=== PATIENT | female | born 1995 | race Hispanic/Latino ===

== ENCOUNTER 2024-07-05 10:57 | Outpatient (CLI) | payer SELFPAY ==
--- NOTE | ~2024-07-05 | US_ITS ---
EXAMINATION: US OB /maternal detail DATE: 07/05/2024 21:57 CDT INDICATION: Anatomy scan TECHNIQUE: Real-time transabdominal obstetric ultrasound. FINDINGS: 3 para 2 There is a single intrauterine gestation in variable presentation. The placenta is posterior without placenta previa The cervix measures 3 cm in length. cardiac activity and movement is noted with a heart rate of 135 beats per minute. Anatomic parameters are as follows The bladder is visualized and is unremarkable. A three-vessel cord is present. Cord insertion is not clearly demonstrated to be on the midline on the submitted images for which f ollow-up is needed. Bilateral kidneys are present without hydronephrosis. The anterior and posterior margins of the diaphragm are continuous. The cervical, thoracic and lumbar spines are covered in their entirety. choroid plexi are visualized, and unremarkable. Lateral ventricles are visualized. The falx is visualized. The cerebellum is visualized measuring 28.5 mm, and is sonographically unremarkable. The cisterna magna measures 2.5 mm in anterior to posterior dimension (normal measurement is 2 to 10 mm). The nuchal fold was not visualized. Cine of the four-chamber heart is visualized although without significant detail. Neither the right or left ventricular outflow tracts were identified. Limited views of the arms, hands, legs and feet were performed and appear grossly unremarkable. Evaluation of the upper lip and nose confirms their continuity. The following biometric data were obtained: Biparietal diameter (BPD): 6.4 cm; head circumference (HC): 24.5 cm; abdominal circumference (AC): 22.7 cm; femur length (FL): 4.8 cm. These measurements are concordant. Estimated weight is 967 g +/- 145 g, which correlates with the 17th percentile when 10/08/2024 i s used as estimated date of delivery. As single measurements, these parameters are each equal to the following estimated gestational ages: BPD: 26 weeks 0 days. HC: 26 weeks 4 days. AC: 27 weeks 1 day. FL: 26 weeks 1 day. estimated gestational age based solely on measurements from this exam is 26 weeks 3 days +/- 1 week 6 days. IMPRESSION: Single intrauterine gestation with an approximate gestational age of 26 weeks and 3 days. Estimated d ue date by ultrasound is 10/08/2024. The nuchal fold was not visualized. Cine of the four-chamber heart is visualized although without significant detail. Neither the right or left ventricular outflow tracts were identified. Cord insertion is not clearly demonstrated to be on the midline on the submitted images for which f ollow-up is needed. Remainder of the anatomy scan is otherwise unremarkable and within normal limits Reviewed, dictated and finalized at location A. IMPRESSION: Single intrauterine gestation with an approximate gestational age of 26 weeks a nd 3 days. Estimated due date by ultrasound is 10/08/2024. The nuchal fold was not visualized. Cine of the four-chamber heart is visualized although without significant det ail. Neither the right or left ventricular outflow tracts were identified. Cord insertion is not clearly demonstrated to be on the midline on the submit evette images for which follow-up is needed. Remainder of the anatomy scan is otherwise unremarkable and within normal limit s
== END 2024-07-05 10:58 | disposition home or self-care (01) ==
LOC: ANHIMG 11:24
PROVIDERS: Visit Provider Physician Assistant Medical
DX: Z34.90 Encounter for supervision of normal pregnancy, unspecified, unspecified trimester (principal)
CPT/HCPCS: 76805

== ENCOUNTER 2024-08-19 14:17 | Outpatient (CLI) | payer MEDICAID, SELFPAY ==
--- NOTE | ~2024-08-19 | US_ITS ---
EXAM EXAMINATION: US OB follow up DATE: 08/19/2024 17:11 CDT INDICATION: Incomplete anatomy scan COMPARISON: 07/05/2024 TECHNIQUE: Real-time transabdominal obstetric ultrasound. FINDINGS: 3 para 2 There is a single intrauterine gestation in vertex presentation. The placenta is posterior The cervix measures 4.51 cm in length on the submitted images. cardiac activity and movement is noted with a heart rate of 133 beats per minute. Amniotic fluid index measures 14.6 cm, within normal limits. Cord insertion is identified along the midline of the abdomen. Cine of the four-chamber heart is visualized on the current study. The following biometric data were obtained: Biparietal diameter (BPD): 8.4 cm; head circumference (HC): 30 cm; abdominal circumference (AC): 31 cm; femur length (FL): 6.2 cm. These measurements are concordant. Estimated weight is 2260 g +/- 339 g, which correlates with the 43rd percentile when 10/03/2024 i s used as estimated date of delivery. As single measurements, these parameters are each equal to the following estimated gestational ages: BPD: 33 weeks 6 days. HC: 33 weeks 5 days. AC: 34 weeks 4 days. FL: 32 weeks 1 day. estimated gestational age based solely on measurements from this exam is 33 weeks 4 days +/- 2 weeks 2 days. IMPRESSION: Single intrauterine gestation in vertex presentation with cardiac activity identified. Proximal gestational age is 33 weeks and 4 days. These portions of the anatomy scan are still incomplete: The nuchal fold was not visualized. Neither the right or left ventricular outflow tracts were identified. Reviewed, dictated and finalized at location A. IMPRESSION: Single intrauterine gestation in vertex presentation with cardiac activit y identified. Proximal gestational age is 33 weeks and 4 days. These portions of the anatomy scan are still incomplete: The nuchal fold was not visualized. Neither the right or left ventricular outflow tracts were identified.
== END 2024-08-19 14:18 | disposition home or self-care (01) ==
DX: Z34.83 Encounter for supervision of other normal pregnancy, third trimester (principal)
CPT/HCPCS: 76816